=== PATIENT | female | born 2005 | race Two or more races ===

== ENCOUNTER 2024-06-19 18:22 | Emergency (ER) | payer OTHER ==
[~2024-06-19] VITALS: Ht 162.6 cm; Wt 100.0 kg
[2024-06-19 19:04] VITALS: TEMP 97.9
[2024-06-19 19:56] LABS: BASOPHILS % (AUTO) 0.5 % (0.0-2.0); HEMATOCRIT 36.1 % (36-46); LYMPHOCYTES # (AUTO) 3.1 K/uL (1.0-4.8); LYMPHOCYTES % (AUTO) 36.2 % (22.0-44.0); MEAN CORPUSCULAR HEMOGLOBIN 28.7 pg (26.0-34.0); MEAN CORPUSCULAR HGB CONC 33.3 G/dL (31.0-37.0); MEAN CORPUSCULAR VOLUME 86 fL (80-100); MONOCYTES # (AUTO) 0.8 K/uL (0.1-1.0); MONOCYTES % (AUTO) 8.6 % (2.0-9.0); NEUTROPHILS # (AUTO) 4.6 K/uL (1.8-7.7); NEUTROPHILS % (AUTO) 52.7 % (40.0-70.0); PLATELET COUNT (AUTO) 225 K/uL (150-450); RED BLOOD CELL COUNT(AUTO) 4.19 MIL/uL (4.00-5.20); WHITE BLOOD COUNT (AUTO) 8.7 K/uL (4.5-11.0)
[2024-06-19 20:06] LABS: ANION GAP 11 mmol/L (8-16); CALCIUM, TOTAL 8.6 mg/dL (8.8-10.5); CARBON DIOXIDE 24 mmol/L (22-29); CHLORIDE 103 mmol/L (98-107); CREATININE 0.71 mg/dL (0.60-1.30); GLOMERULAR FILTR. RATE CALC > 60 mL/min (>60); GLUCOSE,RANDOM 88 mg/dL (70-110); POTASSIUM 3.4 mmol/L (3.5-5.1); SODIUM SERUM 138 mmol/L (136-145); UREA NITROGEN, BLOOD 7 mg/dL (7-18)
[2024-06-19 20:17] LABS: HCG,QUANTITATIVE 1 mIU/mL (0-6)
[2024-06-19 22:52] VITALS: BP 126/72; PULSE 79; RESP 16
== END 2024-06-19 23:11 | disposition home or self-care (01) ==
LOC: EMS 18:22
DX: N92.1 Excessive and frequent menstruation with irregular cycle (principal); E87.6 Hypokalemia
CPT/HCPCS: 76856; 80048; 84702; 85025; 86850; 86900; 86901; 99284

== ENCOUNTER 2025-09-03 12:57 | Emergency (ER) | payer OTHER ==
[~2025-09-03] VITALS: Ht 157.5 cm; Wt 93.6 kg
[2025-09-03 12:59] VITALS: BP 129/78; PULSE 112; RESP 18; TEMP 98.2; O2SAT 95
[2025-09-03 13:51] LABS: PLATELET COUNT (AUTO) 173 K/uL (150-450); RED BLOOD CELL COUNT(AUTO) 5.10 MIL/uL (4.00-5.20); RED CELL DISTRIBUTION WIDTH 14.1 % (11.5-14.5); WHITE BLOOD COUNT (AUTO) 6.1 K/uL (4.5-11.0)
[2025-09-03 14:02] LABS: CALCIUM, TOTAL 9.1 mg/dL (8.8-10.5); CREATININE 0.75 mg/dL (0.60-1.30); GLOMERULAR FILTR. RATE CALC > 60 mL/min (>60); GLUCOSE,RANDOM 91 mg/dL (70-110); SODIUM SERUM 137 mmol/L (136-145); UREA NITROGEN, BLOOD 9 mg/dL (7-18)
[2025-09-03 14:13] LABS: TROPONIN I-HIGH SENSITIVITY Less Than 4 ng/L (<51)
[2025-09-03 14:14] LABS: COVID AG,FIA SOURCE NASAL SWAB
[2025-09-03 14:36] LABS: INFLUENZA TYPE A NEGATIVE FOR TYPE A (NEGATIVE); INFLUENZA TYPE B NEGATIVE FOR TYPE B (NEGATIVE)
[2025-09-03 14:37] LABS: SARS-COV2 (COVID) ANTIGEN,FIA Negative (Negative)
== END 2025-09-03 15:30 | disposition home or self-care (01) ==
LOC: EMS 12:57
DX: R42 Dizziness and giddiness (principal); Z20.822 Contact with and (suspected) exposure to COVID-19
CPT/HCPCS: 71045; 80048; 84484; 84703; 85025; 87804; 93005; 99285; 36415-L1; 36415-TC